=== PATIENT | female | born 1965 | race Caucasian/White ===

== ENCOUNTER 2021-05-10 00:36 | Day surgery (SDC) | payer OTHER, SELFPAY ==
[2021-04-30 15:30] VITALS: BMI 30.2
[2021-05-10 09:08] VITALS: BP 126/76; PULSE 97; RESP 17; TEMP 36.7; O2SAT 99; BMI 30.4
[2021-05-10] MEDS: LACTATED RINGERS 1,000 ML 150 ML IV CONT (09:11)
--- NOTE | 2021-05-10 09:22 | P.PNAN_ITS ---
Anes - Initial Pre Proc Eval Procedure: Operation Date: 05/10/21 10:00 Proposed Procedures p Esophagogastroduodenoscopy & Screening Colonoscopy - Henry Irwin MD Date/Time: 05/10/21 09:22 Surgeon: Henry Irwin MD Pre Op Diagnosis: hx of colon polyps, fam hx colon ca, neoplasm, Patient Data Age: 55 Gender: F Height: 1.63 m Weight: 80.5 kg Last Vital Signs Temp 36.7 C 05/10/21 09:08 Pulse 97 05/10/21 09:08 Resp 17 05/10/21 09:08 BP 126/76 05/10/21 09:08 Pulse Ox 99 05/10/21 09:08 Allergies Allergy/AdvReac Type Severity Reaction Status Date / Time Penicillins Allergy Unknown NAUSEA AND Verified 05/10/21 09:07 VOMITING Home Medications Medication Instructions Recorded Confirmed Type Adult Low Dose Aspirin 81 mg PO DAILY 04/30/21 05/10/21 History ergocalciferol (vitamin D2) 1,250 mcg PO DAILY 04/30/21 05/10/21 History lansoprazole 15 mg PO DAILY 04/30/21 05/10/21 History Patient hx anesthesia problems: none Family hx anesthesia problems: none Results Review: All pre-operative results and documents have been reviewed as part of the pre-operative evaluation. [facility] Past Medical History Medical History GERD (gastroesophageal reflux disease) Social History Social History Smoking status: Never smoker Alcohol intake: never Substance use: never Substance use type: does not use Living arrangements: with family Spiritual care concerns: No Anes - Eval Final PreProcedure Day of Procedure 05/10/21 09:22 Patient weight: overweight Heart: regular rate and rhythm Lungs: clear to auscultation Airway: Mallampati scale class II Neurological: alert and oriented Last oral intake: >/= 8 hours ASA classification: II Emergent: no Anesthetic plan: proceed Anesthesia type and monitoring: general GIVS and standard monitoring Results Review: All pre-operative results and documents have been reviewed as part of the pre-operative evaluation. Informed Consent: The patient's anesthetic plan and its attendant risks and benefits were discussed with the patient/family/POA. Questions were solicited and answers provided to the satisfaction of the patient/family/POA.
--- NOTE | 2021-05-10 09:22 | WPDGICN ---
Assessment and Plan Assessment and plan (1) History of colon polyps: Code(s): Z86.010 - Personal history of colonic polyps Status: Acute Assessment and Plan: Patient has had colon polyps on multiple previous colonoscopies. Initially identified at age 37. Plan is for surveillance colonoscopy now and at intervals in the future typically 5 years. (2) Family hx of colon cancer: Code(s): Z80.0 - Family history of malignant neoplasm of digestive organs Status: Acute Assessment and Plan: Patient's grandmother as well as several great aunts and uncles have had colon cancer. Also a reason for her to have surveillance exam intermittently. (3) GERD (gastroesophageal reflux disease): Code(s): K21.9 - Gastro-esophageal reflux disease without esophagitis Status: Acute Assessment and Plan: Patient has chronic GE reflux disease. Previously had a history of a stricture. Now only takes PPI intermittently. Plan is for EGD to assess more thoroughly at present because of ongoing heartburn and reflux. GI Consult Note Consult date/time: 05/10/21 09:22 HPI: Elissa Manley is a 55 year old female Presents for colonoscopy an EGD. Patient has a personal history of colon polyps. These were initially diagnosed at age 37. She states has been 10 years since last colonoscopy. Family history is significant for her grandmother and several great aunts and uncles have had colon cancer. Additionally patient has a long history of GE reflux that was identified at the time of . At that time she had dysphagia an EGD required dilatation. She currently reports intermittent heartburn she takes Prevacid about 3 times a week and occasional antacids. She denies any dysphagia present. She requests follow-up EGD because of ongoing heartburn. She she has had no bleeding or weight loss. Family history is as stated. Review of Systems Review of Systems: All systems reviewed & are unremarkable except as noted in HPI and below [facility] Past Medical History Medical History (Updated 05/10/21 @ 09:24 by Henry Irwin MD) GERD (gastroesophageal reflux disease) Social History Social History Smoking status: Never smoker Alcohol intake: never Substance use: never Substance use type: does not use Living arrangements: with family Spiritual care concerns: No Meds Home Medications and Allergies Home Medications Medication Instructions Recorded Confirmed Type Adult Low Dose Aspirin 81 mg PO DAILY 04/30/21 05/10/21 History ergocalciferol (vitamin D2) 1,250 mcg PO DAILY 04/30/21 05/10/21 History lansoprazole 15 mg PO DAILY 04/30/21 05/10/21 History Allergies Allergy/AdvReac Type Severity Reaction Status Date / Time Penicillins Allergy Unknown NAUSEA AND Verified 05/10/21 09:07 VOMITING Vital Signs Vital Signs - 24 hr 05/10/21 09:08 Temperature 98.1 F Pulse Rate 97 Respiratory Rate 17 Blood Pressure 126/76 Pulse Oximetry 99 Exam Narrative: Physical exam reveals patient to be alert. Vital signs stable. HEENT exam is unremarkable. Patient is anicteric. Lungs are clear to auscultation and percussion. Heart is without murmur or extra sounds. Abdominal exam bowel sounds present soft nontender with no hepatosplenomegaly. Digital external rectal exam normal.
[2021-05-10 10:25] VITALS: BP 104/67; PULSE 79; RESP 16; O2SAT 100
--- NOTE | 2021-05-10 10:25 | SUR.OPER ---
EGD start 1005 end 1006, Colonoscopy start 1011 end 1021
[2021-05-10 10:35] VITALS: BP 102/62; PULSE 83; RESP 21; O2SAT 100
[2021-05-10 10:45] VITALS: BP 115/63; PULSE 79; RESP 24; O2SAT 100
== END 2021-05-10 10:58 | disposition home or self-care (01) ==
PROVIDERS: PCP Internal Medicine; Visit Provider Internal Medicine Gastroenterology
PROC: 0DJ08ZZ Inspection of Upper Intestinal Tract, Via Natural or Artificial Opening Endoscopic (ICD-10-PCS; CPT 43235; principal; 2021-05-10 10:00)
DX: Z12.11 Encounter for screening for malignant neoplasm of colon (principal); K64.8 Other hemorrhoids; Z80.0 Family history of malignant neoplasm of digestive organs; K63.5 Polyp of colon; K21.9 Gastro-esophageal reflux disease without esophagitis; Z79.82 Long term (current) use of aspirin
CPT/HCPCS: 45385; 43235; 88305; J2001; J2704; J7120

== ENCOUNTER → 2021-12-04 11:17 | Outpatient (CLI) | payer OTHER, SELFPAY ==
--- NOTE | ~2021-12-04 | MM_ITS ---
EXAMINATION: MM screening mei BI w yesica HISTORY: Screening mammogram TECHNIQUE: Craniocaudal and mediolateral oblique 3-D tomosynthesis images were obtained and synthetic 2-D images were generated. CAD analysis was submitted and interpreted. COMPARISON: 10/21/2016 bilateral screening mammogram BREAST PARENCHYMAL COMPOSITION: The breasts are almost entirely fatty. FINDINGS: There is no evidence of suspicious mass, calcification, or architectural distortion to sugg est malignancy in either breast. There has been no suspicious interval change. IMPRESSION: 1. No mammographic evidence of malignancy. 2. Recommend routine screening mammography in one year. BI-RADS Category 1: Negative Reviewed, dictated and finalized at location A.
== END ==
PROVIDERS: PCP Internal Medicine; Visit Provider Nurse Practitioner Obstetrics & Gynecology
DX: Z12.31 Encounter for screening mammogram for malignant neoplasm of breast (principal)
CPT/HCPCS: 77063; 77067

== ENCOUNTER 2023-04-30 14:59 | Outpatient (CLI) | payer OTHER, SELFPAY ==
--- NOTE | ~2023-04-30 | MR_ITS ---
EXAMINATION: MR cervical spine wo con DATE: 04/30/2023 15:30 INDICATION: Other spondylosis with myelopathy, cervical region. Left shoulder pain. Left arm pain. TECHNIQUE: Magnetic resonance imaging (MRI) of the cervical spine was performed without intravenous c ontrast. COMPARISON: Cervical spine radiographs 02/02/2023 FINDINGS: There is 10 degrees dextroscoliosis of cervicothoracic spine. Vertebral body heights are no rmal. There is moderately decreased disc height at C5-C6. The spinal cord signal intensity is normal. The following disc levels are specifically discussed: C2-C3: The disc does not extend beyond the endplate margin. There is no uncovertebral joint osteoarth ritis. There is mild bilateral facet joint osteoarthritis. There is no neural foraminal stenosis. The re is no central canal stenosis. C3-C4: There is a central protrusion. There is mild bilateral uncovertebral joint osteoarthritis. The re is severe bilateral facet joint osteoarthritis. There is mild bilateral neural foraminal stenosis. There is mild central canal stenosis. C4-C5: The disc is bulging. There is mild bilateral uncovertebral joint osteoarthritis. There is mode rate bilateral facet joint osteoarthritis. There is mild left neural foraminal stenosis. There is mil d central canal stenosis. C5-C6: The disc is bulging. There is moderate and severe left uncovertebral joint osteoarthritis. The re is mild right and moderate left facet joint osteoarthritis. There is mild right and moderate left neural foraminal stenosis. There is mild central canal stenosis. C6-C7: The disc is bulging. There is mild right and moderate left uncovertebral joint osteoarthritis. There is mild right and severe left facet joint osteoarthritis. There is mild bilateral neural jeff inal stenosis. There is mild central canal stenosis. C7-T1: The disc does not extend beyond the endplate margin. There is no uncovertebral joint osteoarth ritis. There is mild bilateral facet joint osteoarthritis. There is no neural foraminal stenosis. The re is no central canal stenosis. IMPRESSION: 1. Moderate cervical spondylosis. 2. Cervicothoracic dextroscoliosis. Reviewed, dictated and finalized at location E. [employer]
== END 2023-04-30 15:00 ==
LOC: MICIMG 15:01
PROVIDERS: PCP Physician Assistant Medical; Visit Provider Physician Assistant Medical
DX: M79.602 Pain in left arm (principal); M47.22 Other spondylosis with radiculopathy, cervical region; M47.12 Other spondylosis with myelopathy, cervical region; M41.83 Other forms of scoliosis, cervicothoracic region
CPT/HCPCS: 72141

== ENCOUNTER 2023-06-18 15:58 | Outpatient (CLI) | payer OTHER, SELFPAY ==
--- NOTE | ~2023-06-18 | MR_ITS ---
EXAMINATION: MR shoulder LT wo con DATE: 06/18/2023 16:32 INDICATION: Adhesive capsulitis of shoulder. Left shoulder pain. TECHNIQUE: Magnetic resonance imaging (MRI) of the left shoulder was performed without intravenous co ntrast. Sequences included axial PD-weighted FS FSE, coronal oblique PD-weighted FS FSE and T2-weight ed FS FSE, and sagittal oblique T2-weighted FS FSE and T1-weighted FSE. COMPARISON: Left shoulder radiographs 02/02/2023 FINDINGS: Coracoacromial arch: The acromion undersurface is curved in morphology with anterior hook (type III). There is severe acro mioclavicular joint osteoarthritis. There is mild subacromial/subdeltoid bursitis. Rotator cuff: There is mild supraspinatus tendinopathy. Infraspinatus, teres minor, and subscapularis tendons are n ormal. The rotator cuff muscle bellies are normal. Biceps tendon and glenoid labrum: Biceps tendon is in bicipital groove. Intra-articular biceps tendon is normal. There is degeneration of the glenoid labrum without well-defined tear. Fluid: There is a small glenohumeral joint effusion. Bones/cartilage: Humeral head cartilage is normal. Glenoid cartilage is normal. IMPRESSION: 1. Mild supraspinatus tendinopathy. No tear. 2. Small glenohumeral joint effusion. 3. Mild subacromial/subdeltoid bursitis. Reviewed, dictated and finalized at location A.
== END 2023-06-18 15:59 ==
LOC: MICIMG 15:59
PROVIDERS: PCP Physician Assistant Medical; Visit Provider Physician Assistant Medical
DX: M75.02 Adhesive capsulitis of left shoulder (principal); M75.82 Other shoulder lesions, left shoulder; M25.412 Effusion, left shoulder; M75.52 Bursitis of left shoulder
CPT/HCPCS: 73221

== ENCOUNTER 2025-02-14 12:30 | Outpatient (RCR) | payer OTHER, SELFPAY ==
--- NOTE | 2024-11-30 15:35 | PTOPEVAL1 ---
Assessment and note entered by Blanca Sebastian, PT Evaluation Information Assessment Status Evaluation ICD-10 Condition Codes (PT) Radiculopathy, lumbar region M54.16,Radiculopathy, sacral and sacrococcygeal region M54.18,Weakness R53.1 Subjective Information Pt has had back kyleigh on and off for years. Has been on for all this year, decided to say something about it Reports had sciatic nerve in her 30's, and went to multiple doctors who gave her steroid shots in the hip and this didn't help Went to a chiropractor and states he said she had degenerative disc disease. Was treated and got much better, she would go back as needed when it popped up. Was told would bother her later in life . Pain is limiting her now. States doesn't have her kids come over to visit b/c has to cook and clean and can't do that anymore. In the last month standing has caused pain. States yesterday was standing for a short period and her left side would bite. States pain will go L<>R, and sometimes in the buttocks, and sometimes down the thigh usually the left. Reported Pain Level Pain Score 1: Self Report Additional Pain Score Comments cat stretches helped in the past. ibuprofen, and rest helpful Assessment PT Clinical Summary Pt presents with h/o on and off back pain for many years, at times with radicular symptoms. Today evaluation shows leg length discrepancy with LLE> RLE causing increased stress on sacroiliac joint and possibly nerve impingement in the lumbar spine . She also shows weakness to the left glutes compared to the right and mildly reduced core strength. Pt will benefit from physical therapy to address deficits, improve alignment, and reduce pain to allow her to be more functional and return to activities she likes. Plan of Care Interventions Electrical Stimulation,Hot Pack/Cold Pack,Manual Therapy,Mechanical Traction,Neuro Re-education, Patient/Caregiver Education,Therapeutic Activities ,Therapeutic Exercise,Self-Care/Home Management, Ultrasound,Other Other Interventions Taping, bracing PT Services Indicated Yes Treatment Frequency and 2x weekly x 10 visits Duration These treatments will address the objective and functional deficits as defined above. The patient will be advanced safely and appropriately in order for the patient to progress towards his/her prior level of function. Additional exercises will be introduced and as well as a comprehensive home exercise program upon discharge, if needed, ?to ensure carryover of functional gains achieved in the clinic. This treatment plan has been reviewed and agreement upon by the patient.
--- NOTE | 2024-11-30 15:35 | OPREHPOC ---
Outpatient Therapy Plan of Care This is a Multidisciplinary Plan of Care that may contain components documented by all disciplines (PT, OT, and ST.) PT Problem 1 PT Problem #1 Knowledge Deficit PT Goal 1 Goal / Goal Update Pt will be independent in HEP Pt will verbalize understanding of diagnosis and prognosis Target Visit 5 PT Problem 2 PT Problem #2 Pain PT Goal 1 Goal / Goal Update Pt will report greatest pain level at 3/10 or less to improve ADLs and activities Target Visit 5 PT Goal 2 Goal / Goal Update Pt will report resolution of pain to return to PLOF Target Visit 10 PT Problem 3 PT Problem #3 Impaired Strength PT Goal 1 Goal / Goal Update Pt will demo equal strength RLE and LLE in all tested planes Target Visit 5 PT Goal 2 Goal / Goal Update Pt will demo 4+/5 or greater strength in BLE to improve lumbopelvic stability and kinematics with activities Target Visit 10
--- NOTE | 2025-02-03 13:38 | OPREHPOC ---
Outpatient Therapy Plan of Care This is a Multidisciplinary Plan of Care that may contain components documented by all disciplines (PT, OT, and ST.) PT Problem 1 PT Problem #1 Knowledge Deficit PT Goal 1 Goal / Goal Update Pt will be independent in HEP Pt will verbalize understanding of diagnosis and prognosis Target Visit 5 Progress Met PT Problem 2 PT Problem #2 Pain PT Goal 1 Goal / Goal Update Pt will report greatest pain level at 3/10 or less to improve ADLs and activities Update 02/03/2025 - Pt will report greatest pain levels at 6/10 to show reduced overall pain (by visit 15) Target Visit 5 Progress Not Met PT Goal 2 Goal / Goal Update Pt will report resolution of pain to return to PLOF Updated 02/03/2025 - Pt will report worst pain level at 4/10 for overall improvement in function and comfort (by visit 20) Target Visit 10 PT Problem 3 PT Problem #3 Impaired Strength PT Goal 1 Goal / Goal Update Pt will demo equal strength RLE and LLE in all tested planes - progressed Target Visit 5 Progress Partially Met PT Goal 2 Goal / Goal Update Pt will demo 4+/5 or greater strength in BLE to improve lumbopelvic stability and kinematics with activities - progress Update target visit to 20 Target Visit 10 Progress Partially Met
--- NOTE | 2025-02-03 13:38 | PTOPPROG ---
Assessment and note entered by Blanca Sebastian, PT Evaluation Information Assessment Status Progress ICD-10 Condition Codes (PT) Radiculopathy, lumbar region M54.16,Radiculopathy, sacral and sacrococcygeal region M54.18,Weakness R53.1 Subjective Information Pt reports is about the same. Pt states her home exercises are ok, gets them done in the morning , none are confusing or painful. Pt reports feels fine with the one heel lift in, but the second layer caused her left knee to hurt. So just started trying the second lift again, so far the left knee is doing ok. Pt states standing and cooking is the same. Was telling her last night isn't sure how she will get through the holidays. Pt reports feeling she can stand 15-30 minutes. Pt states left side biting pain is not happening as often and when began therapy. Reports still will get pain into buttocks and back of the thigh just as often as when started therapy Reports she feels like she is able to walk less and less at [facility] and is having to take more breaks with her activities at home. Assessment PT Clinical Summary Pt has attended therapy consistently 10 sessions, though only at once weekly. She reports being consistent with her exercises at home, and is wearing her heel lifts some of the time. She reports still has significant difficulty cooking, though today she reports she doesn't usually wear her shoes with cooking thus is not standing in correct alignment with leg length discrepancy. She does show improvement in her strength, and her ROM is without pain now as compared to her evaluation. She also reports she has less instances of the biting pain than when she started therapy. Her slow progress can be contributed in part due to decreased frequency of sessions, which she has agreed to attempting 2x weekly for second round of therapy. In this round, it was discussed modification and addition of modalities to continue to reduce pain, deep tissue reorganization to allow improved muscle activation, and high focus on correct alignment with activities including wearing her heel lifts more often and maintaining pelvic tilts thus decompressing the lumbar spine. Thus patient will benefit from therapy to continue progression and improve overall pain toward goals. Plan of Care Interventions Electrical Stimulation,Hot Pack/Cold Pack,Manual Therapy,Mechanical Traction,Neuro Re-education, Patient/Caregiver Education,Therapeutic Activities ,Therapeutic Exercise,Self-Care/Home Management, Ultrasound,Other Other Interventions Taping, bracing PT Services Indicated Yes Treatment Frequency and 2x weekly x 10 visits Duration These treatments will address the objective and functional deficits as defined above. The patient will be advanced safely and appropriately in order for the patient to progress towards his/her prior level of function. Additional exercises will be introduced and as well as a comprehensive home exercise program upon discharge, if needed, ?to ensure carryover of functional gains achieved in the clinic. This treatment plan has been reviewed and agreement upon by the patient.
== END 2025-02-28 23:59 | disposition home or self-care (01) ==
LOC: ANHHIPT 12:30
PROVIDERS: PCP Nurse Practitioner Family; Visit Provider Nurse Practitioner Family
DX: M54.16 Radiculopathy, lumbar region (principal)
CPT/HCPCS: 97014; 97110; 97112; 97140; 97161; 97530; 97750; G0283

== ENCOUNTER 2025-03-03 09:09 | Outpatient (CLI) | payer OTHER, SELFPAY ==
--- NOTE | ~2025-03-03 | MR_ITS ---
EXAM/PROCEDURE: MR lumbar spine wo con HISTORY: M51.369 - Other intervertebral disc degeneration, lumbar ... COMPARISON: None available. TECHNIQUE: Multiplanar lumbar spine MRI without contrast FINDINGS: Degenerative changes throughout the lumbar spine involving disc spaces and posterior elements. No acute or aggressive bony or soft tissue process seen. The conus tapers normally at L1. Level specific findings as follows: T12-L1: Mild degenerative change L1-2: Mild degenerative change L2-3: Mild degenerative change L3-4: Moderate desiccation and disc space narrowing with posterior spondylosis and moderately severe facet hyperostosis and thickening of the ligamentum flavum. This results in mild stenosis in the lateral recesses. No spinal canal stenosis or discrete disc protrusion. Mild to moderately severe bilateral neural foraminal narrowing. L4-5: Approximately 5 mm of grade 1 anterolisthesis L4 on L5 associated with facet subluxation and facet hyperostosis. Thickening of ligamentum flavum, combined with moderately severe posterior disc bulging and spondylosis results in moderately severe spinal canal stenosis. See image 24 series 6. No discrete disc protrusion. Moderately severe bilateral neural foraminal narrowing present at this level. L5-S1: No spinal canal stenosis or discrete disc protrusion. Mild to moderate bilateral neural foraminal narrowing associated with degenerative disc and facet changes. IMPRESSION: Degenerative changes throughout the lumbar spine involving disc spaces and posterior elements with changes most severe at L4-5 where there is moderately severe spinal canal stenosis. See level specific details as cataloged above. Reviewed, dictated and finalized at location A. NING DOFFER IMPRESSION: Degenerative changes throughout the lumbar spine involving disc spa ga and posterior elements with changes most severe at L4-5 where there is mode rately severe spinal canal stenosis. See level specific details as cataloged ab ove.
== END 2025-03-03 09:10 | disposition home or self-care (01) ==
LOC: MICIMG 09:09
PROVIDERS: PCP Nurse Practitioner Family; Visit Provider Nurse Practitioner Family
DX: M51.369 Other intervertebral disc degeneration, lumbar region without mention of lumbar back pain or lower extremity pain (principal)
CPT/HCPCS: 72148